=== PATIENT | male | born 1975 | race Caucasian/White ===

== ENCOUNTER 2017-09-09 18:28 | Inpatient (IN) | payer OTHER ==
[2017-09-09] MEDS: SOD CHLORIDE 0.9% 1,000 ML IV (20:24)
[2017-09-09] MEDS: ONDANSETRON 4 MG INJ IV (20:25)
[2017-09-09] MEDS: KETOROLAC 15 MG INJ IV (20:25)
[2017-09-09] MEDS: ACETAMINOPHEN 500 MG TAB PO (20:25)
[2017-09-09 20:36] LABS: ADD MAN DIFF? NO
[2017-09-09 20:38] LABS: WHITE BLOOD COUNT 22.4 10^3/ul (4.8-10.8)
[2017-09-09 20:38] LABS: BASOPHIL # 0.1 10^3/ul (0.0-0.1); BASOPHILS % 0.3 % (0.0-2.0); HEMOGLOBIN 14.7 g/dl (14.0-18.0); LYMPHOCYTES # 2.8 10^3/ul (0.8-2.9); LYMPHOCYTES % 12.4 % (15.0-51.0); MEAN CORPUSCULAR HEMOGLOBIN 28.6 pg (29.0-33.0); MEAN CORPUSCULAR HGB CONC 33.4 g/dl (32.0-37.0); MEAN CORPUSCULAR VOLUME 85.6 fl (82.0-101.0); MEAN PLATELET VOLUME 9.4 fl (7.4-10.4); MONOCYTE # 1.4 10^3/ul (0.3-0.9); NEUTROPHIL # 18.1 10^3/ul (1.6-7.5); NEUTROPHILS % 80.7 % (39.0-77.0); PLATELET COUNT 379 10^3/UL (140-415); RED BLOOD COUNT 5.14 10^6/ul (4.70-6.10); RED CELL DISTRIBUTION WIDTH 13.2 % (11.5-14.5)
[2017-09-09 20:39] LABS: ADD UMIC YES; UR ASCORBIC ACID NEGATIVE (NEGATIVE); UR BILIRUBIN (Dip) NEGATIVE (NEGATIVE); UR BLOOD (Dip) 2+ mg/dL (NEGATIVE); UR CLARITY CLEAR (CLEAR); UR COLOR YELLOW (YELLOW); UR GLUCOSE (Dip) NEGATIVE (NEGATIVE); UR KETONES (Dip) NEGATIVE (NEGATIVE); UR LEUKOCYTE ESTERASE (Dip) NEGATIVE Leu/ul (NEGATIVE); UR MUCUS FEW /HPF (NONE SEEN); UR NITRITE (Dip) NEGATIVE (NEGATIVE); UR RBC 5 /HPF (0-5); UR TOTAL PROTEIN (Dip) NEGATIVE (NEGATIVE); UR UROBILINOGEN (Dip) NEGATIVE (NEGATIVE); UR WBC 1 /HPF (0-5)
[2017-09-09 20:57] LABS: PROTIME 14.4 Sec (11.9-14.9); PT RATIO 1.1
[2017-09-09 20:58] LABS: PARTIAL THROMBOPLASTIN TIME 32.8 Sec (25.0-35.0)
[2017-09-09 21:01] LABS: ALANINE AMINOTRANSFERASE 40 IU/L (13-69); ALBUMIN 4.5 g/dl (3.3-4.9); ALBUMIN/GLOBULIN RATIO 1.25; ALKALINE PHOSPHATASE 96 IU/L (42-121); ANION GAP 17 (8-16); ASPARTATE AMINO TRANSFERASE 22 IU/L (15-46); BILIRUBIN,INDIRECT 0.8 mg/dl (0-1.1); BILIRUBIN,TOTAL 0.8 mg/dl (0.2-1.3); BLOOD UREA NITROGEN 18 mg/dl (7-20); CALCIUM 9.2 mg/dl (8.4-10.2); CARBON DIOXIDE 27 mmol/L (21-31); CHLORIDE 102 mmol/L (97-110); CREATININE 1.07 mg/dl (0.61-1.24); GLUCOSE 109 mg/dl (70-220); LIPASE 71 U/L (23-300); POTASSIUM 3.6 mmol/L (3.5-5.1); SODIUM 142 mmol/L (135-144); TOTAL PROTEIN 8.1 g/dl (6.1-8.1)
[2017-09-09] MEDS: CIPROFLOXACIN 400MG/D5W 200 ML IVPB (22:35)
[2017-09-09] MEDS: metroNIDAZOLE 500 MG/NS (PMX) 100 ML IVPB (22:36)
[2017-09-10] MEDS: DEXTROSE 5%-0.45% NACL 1,000 ML IV ×4 (00:07→16:07)
[2017-09-10] MEDS ORDERED: ALBUTEROL/IPRATROPIUM (NEB) 3 ML AMP HHN (00:30)
[2017-09-10] MEDS ORDERED: NACL 0.9% 3 ML SYG IV (00:30)
[2017-09-10] MEDS ORDERED: morphine 2 MG INJ IV ×2 (00:30→16:30)
[2017-09-10] MEDS ORDERED: ONDANSETRON 4 MG INJ IV (00:30)
[2017-09-10 05:12] LABS: ADD MAN DIFF? NO
[2017-09-10 05:16] LABS: WHITE BLOOD COUNT 19.9 10^3/ul (4.8-10.8)
[2017-09-10 05:16] LABS: BASOPHIL # 0.1 10^3/ul (0.0-0.1); BASOPHILS % 0.3 % (0.0-2.0); EOSINOPHILS % 0.2 % (0.0-7.0); HEMATOCRIT 36.8 % (42.0-52.0); HEMOGLOBIN 12.4 g/dl (14.0-18.0); LYMPHOCYTES % 10.1 % (15.0-51.0); MEAN CORPUSCULAR HEMOGLOBIN 29.1 pg (29.0-33.0); MEAN CORPUSCULAR HGB CONC 33.7 g/dl (32.0-37.0); MEAN CORPUSCULAR VOLUME 86.4 fl (82.0-101.0); MEAN PLATELET VOLUME 9.5 fl (7.4-10.4); MONOCYTE # 1.2 10^3/ul (0.3-0.9); MONOCYTES % 6.1 % (0.0-11.0); NEUTROPHIL # 16.4 10^3/ul (1.6-7.5); NEUTROPHILS % 82.7 % (39.0-77.0); PLATELET COUNT 333 10^3/UL (140-415); RED BLOOD COUNT 4.26 10^6/ul (4.70-6.10); RED CELL DISTRIBUTION WIDTH 13.2 % (11.5-14.5)
[2017-09-10] MEDS: metroNIDAZOLE 500 MG/NS (PMX) 100 ML IVPB ×3 (05:21→21:17)
[2017-09-10 05:58] LABS: ALANINE AMINOTRANSFERASE 29 IU/L (13-69); ALBUMIN 3.4 g/dl (3.3-4.9); ALKALINE PHOSPHATASE 67 IU/L (42-121); ANION GAP 14 (8-16); ASPARTATE AMINO TRANSFERASE 18 IU/L (15-46); BILIRUBIN,INDIRECT 0.8 mg/dl (0-1.1); BILIRUBIN,TOTAL 0.8 mg/dl (0.2-1.3); BLOOD UREA NITROGEN 13 mg/dl (7-20); CALCIUM 8.2 mg/dl (8.4-10.2); CARBON DIOXIDE 28 mmol/L (21-31); CHLORIDE 101 mmol/L (97-110); CREATININE 0.93 mg/dl (0.61-1.24); GLUCOSE 115 mg/dl (70-220); MAGNESIUM 1.8 mg/dl (1.7-2.5); PHOSPHORUS 2.4 mg/dl (2.5-4.9); POTASSIUM 3.5 mmol/L (3.5-5.1); SODIUM 139 mmol/L (135-144)
[2017-09-10] MEDS: FAMOTIDINE 20 MG INJ IV ×2 (09:26→20:16)
[2017-09-10] MEDS: CIPROFLOXACIN 400MG/D5W 200 ML IVPB ×2 (09:55→20:16)
[2017-09-10] MEDS: ACETAMINOPHEN 1000MG/100ML IV 100 ML IVPB (13:39)
[2017-09-11] MEDS: DEXTROSE 5%-0.45% NACL 1,000 ML IV ×3 (00:07→17:04)
[2017-09-11 05:10] LABS: ADD MAN DIFF? NO
[2017-09-11 05:16] LABS: WHITE BLOOD COUNT 20.1 10^3/ul (4.8-10.8)
[2017-09-11 05:16] LABS: BASOPHIL # 0.1 10^3/ul (0.0-0.1); BASOPHILS % 0.2 % (0.0-2.0); EOSINOPHILS % 0.2 % (0.0-7.0); HEMATOCRIT 37.9 % (42.0-52.0); HEMOGLOBIN 12.5 g/dl (14.0-18.0); LYMPHOCYTES # 2.3 10^3/ul (0.8-2.9); LYMPHOCYTES % 11.2 % (15.0-51.0); MEAN CORPUSCULAR HEMOGLOBIN 28.7 pg (29.0-33.0); MEAN CORPUSCULAR VOLUME 87.1 fl (82.0-101.0); MEAN PLATELET VOLUME 9.3 fl (7.4-10.4); MONOCYTE # 1.2 10^3/ul (0.3-0.9); NEUTROPHIL # 16.4 10^3/ul (1.6-7.5); NEUTROPHILS % 81.7 % (39.0-77.0); PLATELET COUNT 353 10^3/UL (140-415); RED BLOOD COUNT 4.35 10^6/ul (4.70-6.10); RED CELL DISTRIBUTION WIDTH 13.2 % (11.5-14.5)
[2017-09-11] MEDS: metroNIDAZOLE 500 MG/NS (PMX) 100 ML IVPB ×3 (05:16→23:17)
[2017-09-11 05:31] LABS: ALANINE AMINOTRANSFERASE 26 IU/L (13-69); ALBUMIN 3.6 g/dl (3.3-4.9); ALBUMIN/GLOBULIN RATIO 1.24; ALKALINE PHOSPHATASE 91 IU/L (42-121); ANION GAP 15 (8-16); ASPARTATE AMINO TRANSFERASE 15 IU/L (15-46); BILIRUBIN,INDIRECT 0.5 mg/dl (0-1.1); BILIRUBIN,TOTAL 0.5 mg/dl (0.2-1.3); BLOOD UREA NITROGEN 11 mg/dl (7-20); CALCIUM 8.6 mg/dl (8.4-10.2); CARBON DIOXIDE 29 mmol/L (21-31); CHLORIDE 100 mmol/L (97-110); CREATININE 0.97 mg/dl (0.61-1.24); GLUCOSE 118 mg/dl (70-220); POTASSIUM 3.7 mmol/L (3.5-5.1); SODIUM 140 mmol/L (135-144); TOTAL PROTEIN 6.5 g/dl (6.1-8.1)
[2017-09-11 05:32] LABS: INR 1.43; PROTIME 17.7 Sec (11.9-14.9); PT RATIO 1.4
[2017-09-11] MEDS: CIPROFLOXACIN 400MG/D5W 200 ML IVPB ×2 (08:08→20:38)
[2017-09-11] MEDS: FAMOTIDINE 20 MG INJ IV ×2 (08:08→20:38)
[2017-09-11 09:39] LABS: ANION GAP 13 (8-16); BLOOD UREA NITROGEN 12 mg/dl (7-20); CALCIUM 8.6 mg/dl (8.4-10.2)
[2017-09-11 09:40] LABS: CARBON DIOXIDE 27 mmol/L (21-31); CHLORIDE 104 mmol/L (97-110); CREATININE 0.97 mg/dl (0.61-1.24); GLUCOSE 117 mg/dl (70-220); MAGNESIUM 2.1 mg/dl (1.7-2.5); PHOSPHORUS 2.9 mg/dl (2.5-4.9); POTASSIUM 3.8 mmol/L (3.5-5.1); SODIUM 140 mmol/L (135-144)
[2017-09-11 11:26] LABS: HEMOGLOBIN A1C 5.8 % (0-5.9)
[2017-09-11] MEDS: KETOROLAC 30 MG INJ IV (17:01)
[2017-09-12] MEDS: metroNIDAZOLE 500 MG/NS (PMX) 100 ML IVPB ×3 (05:08→22:27)
[2017-09-12] MEDS: DEXTROSE 5%-0.45% NACL 1,000 ML IV ×3 (05:09→22:24)
[2017-09-12 05:53] LABS: ADD MAN DIFF? NO
[2017-09-12 06:04] LABS: BASOPHIL # 0.1 10^3/ul (0.0-0.1); BASOPHILS % 0.4 % (0.0-2.0); EOSINOPHILS # 0.2 10^3/ul (0.0-0.5); EOSINOPHILS % 1.4 % (0.0-7.0); HEMATOCRIT 36.5 % (42.0-52.0); LYMPHOCYTES # 1.9 10^3/ul (0.8-2.9); LYMPHOCYTES % 13.4 % (15.0-51.0); MEAN CORPUSCULAR HEMOGLOBIN 28.6 pg (29.0-33.0); MEAN CORPUSCULAR HGB CONC 32.9 g/dl (32.0-37.0); MEAN CORPUSCULAR VOLUME 86.9 fl (82.0-101.0); MEAN PLATELET VOLUME 9.8 fl (7.4-10.4); MONOCYTE # 1.1 10^3/ul (0.3-0.9); MONOCYTES % 7.8 % (0.0-11.0); NEUTROPHIL # 10.8 10^3/ul (1.6-7.5); NEUTROPHILS % 76.4 % (39.0-77.0); PLATELET COUNT 397 10^3/UL (140-415); RED CELL DISTRIBUTION WIDTH 12.9 % (11.5-14.5)
[2017-09-12 06:04] LABS: WHITE BLOOD COUNT 14.2 10^3/ul (4.8-10.8)
[2017-09-12 06:18] LABS: INR 1.26; PT RATIO 1.3
[2017-09-12 06:23] LABS: ALANINE AMINOTRANSFERASE 25 IU/L (13-69); ALBUMIN 3.4 g/dl (3.3-4.9); ALBUMIN/GLOBULIN RATIO 1.21; ALKALINE PHOSPHATASE 84 IU/L (42-121); ANION GAP 15 (8-16); ASPARTATE AMINO TRANSFERASE 15 IU/L (15-46); BILIRUBIN,INDIRECT 0.4 mg/dl (0-1.1); BILIRUBIN,TOTAL 0.4 mg/dl (0.2-1.3); BLOOD UREA NITROGEN 13 mg/dl (7-20); CALCIUM 8.7 mg/dl (8.4-10.2); CARBON DIOXIDE 29 mmol/L (21-31); CHLORIDE 101 mmol/L (97-110); CREATININE 0.96 mg/dl (0.61-1.24); GLUCOSE 113 mg/dl (70-220); MAGNESIUM 2.3 mg/dl (1.7-2.5); PHOSPHORUS 3.4 mg/dl (2.5-4.9); POTASSIUM 3.5 mmol/L (3.5-5.1); SODIUM 141 mmol/L (135-144); TOTAL PROTEIN 6.2 g/dl (6.1-8.1)
[2017-09-12] MEDS: CIPROFLOXACIN 400MG/D5W 200 ML IVPB ×2 (08:17→20:47)
[2017-09-12] MEDS: FAMOTIDINE 20 MG INJ IV ×2 (08:17→20:47)
[2017-09-12] MEDS: SOD CHLORIDE 0.9% 100 ML (11:41)
[2017-09-12] MEDS: IOHEXOL 300MG/ML 150 ML BTL (11:41)
[2017-09-12] MEDS ORDERED: morphine LIQ (10 MG/5 ML) CUP PO (18:00)
[2017-09-13] MEDS: DEXTROSE 5%-0.45% NACL 1,000 ML IV ×4 (00:07→22:39)
[2017-09-13] MEDS: metroNIDAZOLE 500 MG/NS (PMX) 100 ML IVPB ×3 (06:22→22:39)
[2017-09-13] MEDS: CIPROFLOXACIN 400MG/D5W 200 ML IVPB ×2 (08:09→20:51)
[2017-09-13] MEDS: FAMOTIDINE 20 MG INJ IV ×2 (08:09→20:51)
[2017-09-14 05:02] LABS: ADD MAN DIFF? NO
[2017-09-14 05:08] LABS: WHITE BLOOD COUNT 12.3 10^3/ul (4.8-10.8)
[2017-09-14 05:08] LABS: BASOPHIL # 0.1 10^3/ul (0.0-0.1); BASOPHILS % 0.6 % (0.0-2.0); EOSINOPHILS # 0.3 10^3/ul (0.0-0.5); EOSINOPHILS % 2.7 % (0.0-7.0); HEMATOCRIT 38.7 % (42.0-52.0); HEMOGLOBIN 12.9 g/dl (14.0-18.0); LYMPHOCYTES % 16.5 % (15.0-51.0); MEAN CORPUSCULAR HEMOGLOBIN 28.9 pg (29.0-33.0); MEAN CORPUSCULAR HGB CONC 33.3 g/dl (32.0-37.0); MEAN CORPUSCULAR VOLUME 86.8 fl (82.0-101.0); MONOCYTE # 1.1 10^3/ul (0.3-0.9); MONOCYTES % 9.2 % (0.0-11.0); NEUTROPHIL # 8.7 10^3/ul (1.6-7.5); PLATELET COUNT 525 10^3/UL (140-415); RED BLOOD COUNT 4.46 10^6/ul (4.70-6.10); RED CELL DISTRIBUTION WIDTH 12.6 % (11.5-14.5)
[2017-09-14] MEDS: metroNIDAZOLE 500 MG/NS (PMX) 100 ML IVPB ×2 (05:31→13:45)
[2017-09-14] MEDS: FAMOTIDINE 20 MG INJ IV (08:37)
[2017-09-14] MEDS: CIPROFLOXACIN 400MG/D5W 200 ML IVPB (08:38)
[2017-09-14] MEDS: DEXTROSE 5%-0.45% NACL 1,000 ML IV (08:55)
[2017-09-14] MEDS ORDERED: metroNIDAZOLE 500 MG TAB PO ×2 (14:00→22:00)
[2017-09-14] MEDS: CIPROFLOXACIN 500 MG TAB PO (17:51)
== END 2017-09-14 18:00 | disposition home or self-care (01) | DRG 872 ==
LOC: MS1 22:33 → FTE 18:28
DX: A41.9 Sepsis, unspecified organism (principal); K57.20 Diverticulitis of large intestine with perforation and abscess without bleeding; R50.9 Fever, unspecified
CPT/HCPCS: 36415; 74176; 74177; 80048; 80053; 81001; 83036; 83605; 83690; 83735; 84100; 84443; 85025; 85610; 85730; 87040; 96374; 96375; 99285-25

== ENCOUNTER 2018-02-02 12:51 | Emergency (ER) | payer OTHER ==
[2018-02-02] MEDS: SOD CHLORIDE 0.9% 2,390 ML IV (13:44)
[2018-02-02 13:46] LABS: ADD MAN DIFF? NO
[2018-02-02 13:52] LABS: WHITE BLOOD COUNT 14.5 10^3/ul (4.8-10.8)
[2018-02-02 13:52] LABS: BASOPHIL # 0.1 10^3/ul (0.0-0.1); BASOPHILS % 0.4 % (0.0-2.0); EOSINOPHILS # 0.1 10^3/ul (0.0-0.5); EOSINOPHILS % 0.5 % (0.0-7.0); HEMATOCRIT 44.3 % (42.0-52.0); HEMOGLOBIN 14.7 g/dl (14.0-18.0); LYMPHOCYTES # 1.9 10^3/ul (0.8-2.9); LYMPHOCYTES % 13.4 % (15.0-51.0); MEAN CORPUSCULAR HGB CONC 33.2 g/dl (32.0-37.0); MEAN CORPUSCULAR VOLUME 84.4 fl (82.0-101.0); MEAN PLATELET VOLUME 9.2 fl (7.4-10.4); MONOCYTE # 1.4 10^3/ul (0.3-0.9); MONOCYTES % 9.6 % (0.0-11.0); NEUTROPHILS % 75.6 % (39.0-77.0); PLATELET COUNT 389 10^3/UL (140-415); RED BLOOD COUNT 5.25 10^6/ul (4.70-6.10); RED CELL DISTRIBUTION WIDTH 12.5 % (11.5-14.5)
[2018-02-02] MEDS: ACETAMINOPHEN 325 MG TAB PO (13:55)
[2018-02-02 13:58] LABS: ADD UMIC YES; UR ASCORBIC ACID NEGATIVE (NEGATIVE); UR BILIRUBIN (Dip) NEGATIVE (NEGATIVE); UR BLOOD (Dip) 2+ mg/dL (NEGATIVE); UR CLARITY CLEAR (CLEAR); UR COLOR STRAW (YELLOW); UR GLUCOSE (Dip) NEGATIVE (NEGATIVE); UR KETONES (Dip) NEGATIVE (NEGATIVE); UR LEUKOCYTE ESTERASE (Dip) NEGATIVE Leu/ul (NEGATIVE); UR NITRITE (Dip) NEGATIVE (NEGATIVE); UR RBC 1 /HPF (0-5); UR SPECIFIC GRAVITY (Dip) 1.006 (1.003-1.030); UR TOTAL PROTEIN (Dip) NEGATIVE (NEGATIVE); UR UROBILINOGEN (Dip) NEGATIVE (NEGATIVE); UR WBC 0 /HPF (0-5)
[2018-02-02 14:09] LABS: ALANINE AMINOTRANSFERASE 40 IU/L (13-69); ALBUMIN 4.2 g/dl (3.3-4.9); ALBUMIN/GLOBULIN RATIO 1.44; ALKALINE PHOSPHATASE 101 IU/L (42-121); ANION GAP 12 (5-13); ASPARTATE AMINO TRANSFERASE 29 IU/L (15-46); BILIRUBIN,INDIRECT 0.2 mg/dl (0-1.1); BILIRUBIN,TOTAL 0.2 mg/dl (0.2-1.3); BLOOD UREA NITROGEN 11 mg/dl (7-20); CALCIUM 9.1 mg/dl (8.4-10.2); CARBON DIOXIDE 26 mmol/L (21-31); CHLORIDE 101 mmol/L (97-110); CREATININE 0.72 mg/dl (0.61-1.24); Estimated GFR > 60 mL/min (>60); GLUCOSE 126 mg/dl (70-220); LIPASE 56 U/L (23-300); POTASSIUM 3.7 mmol/L (3.5-5.1); SODIUM 139 mmol/L (135-144); TOTAL PROTEIN 7.1 g/dl (6.1-8.1)
[2018-02-02 14:25] LABS: INR 1.07; PT RATIO 1.1
[2018-02-02 14:26] LABS: PARTIAL THROMBOPLASTIN TIME 30.9 Sec (23.0-35.0)
[2018-02-02 14:34] LABS: TROPONIN-I < 0.012 ng/ml (0.000-0.120)
[2018-02-02] MEDS: SOD CHLORIDE 0.9% 100 ML (16:20)
[2018-02-02] MEDS: IOHEXOL 300MG/ML 150 ML BTL (16:20)
[2018-02-02] MEDS: CIPROFLOXACIN 400MG/D5W 200 ML IVPB (17:18)
[2018-02-02] MEDS: metroNIDAZOLE 500 MG TAB PO (17:46)
== END 2018-02-02 18:18 | disposition home or self-care (01) ==
LOC: FTE 12:51
DX: R50.9 Fever, unspecified (principal); R10.9 Unspecified abdominal pain
CPT/HCPCS: 36415; 71045; 74177; 80053; 81001; 83605; 83690; 84484; 85025; 85610; 85730; 87040; 96361; 96374; 99285-25